=== PATIENT | female | born 1950 | race American Indian/Alaskan Native ===

== ENCOUNTER 2018-12-14 05:34 | Emergency (ER) | payer MEDICARE ==
[2018-12-14 05:46] VITALS: BP 171/76
[2018-12-14] MEDS ORDERED: IBUPROFEN PO ONE (07:53)
[2018-12-14] MEDS ORDERED: BOOSTRIX IM ONE (07:53)
--- NOTE | 2018-12-14 07:57 | Emergency Department Report ---
ED Laceration HPI - HPI Chief Complaint: Laceration/Recheck/Suture Stated Complaint: LACERATION TO RIGHT PINKY FINGER Time Seen by Provider: 12/14/18 07:52 Occurred When: Today Location: Upper Extremity Severity: mild Tetanus Status: Not up to Date Laceration Symptoms: Yes Pain, No Foreign Body Sensation, No Numbness, No Weakness Other History: 68 YO CUT HAND ON BROKEN GLASS WHILE WASHING DISHES THIS AM. NEUROVASC INTACT ED Review of Systems ROS: Stated complaint: LACERATION TO RIGHT PINKY FINGER Other details as noted in HPI Comment: All other systems reviewed and negative ED Past Medical Hx - Past Medical History Previous Medical History?: No - Surgical History Past Surgical History?: No - Family History Family history: no significant - Social History Smoking Status: Never Smoker Substance Use Type: Alcohol Laceration Physical Exam - Exam General: Vital signs noted. No distress. Alert and acting appropriately. Laceration Location: Upper Extremity Laceration Exam: Yes Normal Distal CMS, No Foreign Body, No Exposed Tendon, Vessel, or Nerve, No Tendon Injury ED Course Vital Signs 12/14/18 05:43 Temperature 98.2 F Pulse Rate 68 Respiratory 18 Rate Blood Pressure 171/76 O2 Sat by Pulse 100 Oximetry - Laceration /Wound Repair R HAND Wound Location: upper extremity Wound Length (cm): 6 Wound's Depth, Shape: superficial Wound Explored: no foreign body removed Irrigated w/ Saline (ccs): 50 Betadine Prep?: Yes Wound Repaired With: Steri-strips, Dermabond Layer Closure?: No Sterile Dressing Applied?: Yes ED Medical Decision Making - Medical Decision Making WOUND CLEANED, REPAIRED, DRESSED DC HOME WITH DC PLAN OF CARE Vital Signs 12/14/18 05:43 Temperature 98.2 F Pulse Rate 68 Respiratory 18 Rate Blood Pressure 171/76 O2 Sat by Pulse 100 Oximetry - Differential Diagnosis SIMPLE LAC Critical care attestation.: If time is entered above; I have spent that time in minutes in the direct care of this critically ill patient, excluding procedure time. ED Disposition Clinical Impression: Laceration Disposition: DC-01 TO HOME OR SELFCARE Is pt being admited?: No Does the pt Need Aspirin: No Condition: Stable Instructions: Laceration (ED) Additional Instructions: CLEAN WE HAVE DISCUSSED KEEP COVERED MOTRIN OR TYLENOL FOR PAIN TETANUS UPDATE GIVEN TODAY Referrals: OCTAVIO TANNER MD [Staff Physician] - 3-5 Days Time of Disposition: 07:57
[2018-12-14] MEDS ORDERED: NACL 0.9% IR ONE (08:30)
== END 2018-12-14 08:40 | disposition home or self-care (01) ==
LOC: ED 05:34
DX: S61.216A Laceration without foreign body of right little finger without damage to nail, initial encounter (principal); W25.XXXA Contact with sharp glass, initial encounter; Y93.G1 Activity, food preparation and clean up; Y92.89 Other specified places as the place of occurrence of the external cause; Y99.8 Other external cause status
CPT/HCPCS: 90715; 96372; 99282